=== PATIENT | female | born 1965 | race Caucasian/White ===

== ENCOUNTER 2022-12-16 09:56 | Emergency (ER) | payer SELFPAY ==
[~2022-12-16] VITALS: Ht 152.4 cm; Wt 59.9 kg
--- NOTE | 2022-12-16 10:05 | NUR ---
PT MOVED TO BED 9, PRIMARY RN NOTIFIED, NOTIFIED IMMEDIATELY OF BP 243/110
[2022-12-16 10:09] VITALS: BP 243/110
[2022-12-16 10:28] LABS: BASOPHILS % (AUTO) 0.5 % (0.0-2.0); EOSINOPHILS # (AUTO) 0.2 K/uL (0-0.4); EOSINOPHILS % (AUTO) 2.5 % (0.0-4.0); HEMATOCRIT 41.4 % (36-48); HEMOGLOBIN 14.2 g/dL (12.0-16.0); LYMPHOCYTES % (AUTO) 31.7 % (20.5-51.1); MEAN CORPUSCULAR HEMOGLOBIN 30 pg (27-31); MEAN CORPUSCULAR HGB CONC 34 g/dL (33-37); MEAN CORPUSCULAR VOLUME 88.2 fL (80-94); MONOCYTES # (AUTO) 0.5 K/uL (0.8-1.0); MONOCYTES % (AUTO) 8.5 % (1.7-9.3); NEUTROPHILS # (AUTO) 3.6 K/uL (1.8-7.7); NEUTROPHILS % (AUTO) 56.8 % (42.2-75.2); PLATELET COUNT (AUTO) 215 K/uL (140-450); RED BLOOD CELL COUNT(AUTO) 4.69 MIL/uL (4.20-5.40); RED CELL DISTRIBUTION WIDTH 12.8 % (11.6-13.7); WHITE BLOOD COUNT (AUTO) 6.4 K/uL (4.8-10.8)
--- NOTE | 2022-12-16 10:36 | NUR ---
PT C/O DIZZINESS X 3 WKS, WORSEN TODAY. SEEN BY PCP TODAY AND WAS ADVICED TO BE SEEN IN ER. PT DENIES CP AND RUSH. SAFETY MAINTAINED. HX: HTN 4YRS AGO. MEDS: NONE
[2022-12-16 10:49] LABS: ANION GAP 11.5 (8-16); CARBON DIOXIDE 29.9 mmol/L (21-32); CREATININE 0.7 mg/dL (0.6-1.3); POTASSIUM 3.4 mmol/L (3.5-5.1)
[2022-12-16] MEDS ORDERED: amLODIPine 5 MG TAB PO ONE (10:50)
[2022-12-16] MEDS ORDERED: AMLO10TA89 PO (11:56)
[2022-12-16] MEDS ORDERED: POTASSIUM CHLORIDE 10 MEQ TABER PO ONE (12:10)
[2022-12-16 12:44] VITALS: BP 220/106
--- NOTE | 2022-12-16 12:45 | NUR ---
Patient discharged with v/s stable. Written and verbal after care instructions given. Patient alert, oriented and verbalized understanding of instructions. Ambulatory with steady gait. All questions addressed prior to discharge. ID band removed. Patient advised to follow up with PMD. Rx of AMLODIPINE BESYLATE given. Patient educated on indication of medication including possible reaction and side effects. Opportunity to ask questions provided and answered.
--- NOTE | 2022-12-16 12:46 | NUR ---
The patient's care was reviewed and supervised by [facility], RN.
== END 2022-12-16 12:45 | disposition home or self-care (01) ==
LOC: MED 09:56
DX: I10 Essential (primary) hypertension (principal); Z79.899 Other long term (current) drug therapy
CPT/HCPCS: 36415; 71045; 80048; 84484; 85025; 93005; 99285; Q0092